=== PATIENT | male | born 1985 | race Caucasian/White ===

== ENCOUNTER 2020-09-10 08:26 | Emergency (ER) | payer MEDICAID ==
[~2020-09-10] VITALS: Ht 162.6 cm; Wt 72.7 kg
[2020-09-10] MEDS ORDERED: ACETAMINOPHEN 325 MG TABLET PO ONE (11:00)
[2020-09-10 11:15] LABS: BASOPHILS % (AUTO) 0.5 % (0.0-2.0); EOSINOPHILS % (AUTO) 2.1 % (1.0-6.0); HEMATOCRIT 37.9 % (41-53); HEMOGLOBIN 12.9 g/dL (13.5-17.5); LYMPHOCYTES # (AUTO) 1.6 K/uL (1.0-4.8); LYMPHOCYTES % (AUTO) 22.5 % (22.0-44.0); MEAN CORPUSCULAR HEMOGLOBIN 30.7 pg (26.0-34.0); MEAN CORPUSCULAR HGB CONC 34.1 G/dL (31.0-37.0); MEAN CORPUSCULAR VOLUME 90 fL (80-100); MONOCYTES # (AUTO) 0.4 K/uL (0.1-1.0); MONOCYTES % (AUTO) 6.1 % (2.0-9.0); NEUTROPHILS # (AUTO) 4.8 K/uL (1.8-7.7); NEUTROPHILS % (AUTO) 68.8 % (40.0-70.0); PLATELET COUNT (AUTO) 226 K/uL (150-450); RED BLOOD CELL COUNT(AUTO) 4.21 MIL/uL (4.50-5.90); RED CELL DISTRIBUTION WIDTH 13.3 % (11.5-14.5)
[2020-09-10 11:27] LABS: COVID AG,FIA SOURCE NASOPHARYNGEAL
[2020-09-10 11:37] LABS: ANION GAP 8 mmol/L (8-16); CALCIUM, TOTAL 8.7 mg/dL (8.8-10.5); CARBON DIOXIDE 30 mmol/L (22-29); CHLORIDE 103 mmol/L (98-107); CREATININE 0.84 mg/dL (0.60-1.30); GLOMERULAR FILTR. RATE CALC > 60 mL/min (>60); GLUCOSE,RANDOM 124 mg/dL (70-110); POTASSIUM 3.9 mmol/L (3.5-5.1); SODIUM SERUM 141 mmol/L (136-145); UREA NITROGEN, BLOOD 9 mg/dL (7-18)
[2020-09-10 11:38] LABS: AMPHET/METH SCREEN,URINE NEGATIVE (NEGATIVE); BARBITURATE SCREEN, URINE NEGATIVE (NEGATIVE); BENZODIAZEPINES SCREEN,URINE NEGATIVE (NEGATIVE); CANNABINOID SCREEN,URINE NEGATIVE (NEGATIVE); COCAINE SCREEN,URINE NEGATIVE (NEGATIVE); METHADONE SCREEN, URINE NEGATIVE (NEGATIVE); OPIATE SCREEN,URINE NEGATIVE (NEGATIVE); PHENCYCLIDINE SCREEN,URINE NEGATIVE (NEGATIVE)
[2020-09-10 11:43] LABS: ALANINE AMINOTRANSFERASE 44 U/L (12-78); ALBUMIN 3.7 g/dL (3.4-5.0); ALKALINE PHOSPHATASE 103 U/L (46-116); ASPARTATE AMINOTRANSFERASE 21 U/L (15-37); BILIRUBIN,TOTAL 0.2 mg/dL (0.1-1.0); TOTAL PROTEIN, SERUM 7.1 g/dL (6.4-8.2)
[2020-09-10 12:00] VITALS: BP 136/39
== END 2020-09-10 12:23 | disposition home or self-care (01) ==
LOC: EMS 08:26
DX: R44.0 Auditory hallucinations (principal); Z20.822 Contact with and (suspected) exposure to COVID-19; F15.90 Other stimulant use, unspecified, uncomplicated; K08.89 Other specified disorders of teeth and supporting structures
CPT/HCPCS: 36415; 80053; 80307; 85025; 87426; 99284; G0480

== ENCOUNTER 2021-04-06 13:07 | Emergency (ER) | payer MEDICAID ==
[~2021-04-06] VITALS: Ht 170.2 cm; Wt 86.4 kg
[2021-04-06] MEDS ORDERED: LORazepam 1 MG TABLET PO ONE (13:45)
[2021-04-06] MEDS ORDERED: HALOPERIDOL 5 MG TABLET PO ONE (13:45)
[2021-04-06 14:10] LABS: BASOPHILS % (AUTO) 0.4 % (0.0-2.0); EOSINOPHILS % (AUTO) 1.3 % (1.0-6.0); HEMATOCRIT 40.1 % (41-53); HEMOGLOBIN 13.5 g/dL (13.5-17.5); LYMPHOCYTES # (AUTO) 1.5 K/uL (1.0-4.8); MEAN CORPUSCULAR HEMOGLOBIN 29.7 pg (26.0-34.0); MEAN CORPUSCULAR HGB CONC 33.5 G/dL (31.0-37.0); MEAN CORPUSCULAR VOLUME 89 fL (80-100); MONOCYTES # (AUTO) 0.7 K/uL (0.1-1.0); MONOCYTES % (AUTO) 8.2 % (2.0-9.0); NEUTROPHILS # (AUTO) 5.8 K/uL (1.8-7.7); NEUTROPHILS % (AUTO) 72.1 % (40.0-70.0); PLATELET COUNT (AUTO) 140 K/uL (150-450); RED BLOOD CELL COUNT(AUTO) 4.53 MIL/uL (4.50-5.90); RED CELL DISTRIBUTION WIDTH 12.8 % (11.5-14.5)
[2021-04-06 14:19] LABS: ANION GAP 9 mmol/L (8-16); CALCIUM, TOTAL 8.8 mg/dL (8.8-10.5); CARBON DIOXIDE 28 mmol/L (22-29); CHLORIDE 105 mmol/L (98-107); CREATININE 0.69 mg/dL (0.60-1.30); GLOMERULAR FILTR. RATE CALC > 60 mL/min (>60); GLUCOSE,RANDOM 120 mg/dL (70-110); POTASSIUM 3.9 mmol/L (3.5-5.1); SODIUM SERUM 142 mmol/L (136-145); UREA NITROGEN, BLOOD 11 mg/dL (7-18)
[2021-04-06 14:23] LABS: ALANINE AMINOTRANSFERASE 44 U/L (12-78); ALBUMIN 3.9 g/dL (3.4-5.0); ALKALINE PHOSPHATASE 123 U/L (46-116); ASPARTATE AMINOTRANSFERASE 16 U/L (15-37); BILIRUBIN,TOTAL 0.2 mg/dL (0.1-1.0); TOTAL PROTEIN, SERUM 7.8 g/dL (6.4-8.2)
[2021-04-06 15:12] LABS: AMPHET/METH SCREEN,URINE NEGATIVE (NEGATIVE); BARBITURATE SCREEN, URINE NEGATIVE (NEGATIVE); BENZODIAZEPINES SCREEN,URINE NEGATIVE (NEGATIVE); CANNABINOID SCREEN,URINE NEGATIVE (NEGATIVE); COCAINE SCREEN,URINE NEGATIVE (NEGATIVE); METHADONE SCREEN, URINE NEGATIVE (NEGATIVE); OPIATE SCREEN,URINE NEGATIVE (NEGATIVE)
[2021-04-06 15:13] LABS: PHENCYCLIDINE SCREEN,URINE NEGATIVE (NEGATIVE)
[2021-04-06] MEDS ORDERED: MECLIZINE HCL 25 MG TABLET PO ONE (17:15)
[2021-04-06 18:37] LABS: COVID AG,FIA SOURCE NASOPHARYNGEAL
[2021-04-06 19:30] VITALS: BP 129/79
== END 2021-04-06 19:42 | disposition short-term general hospital (02) ==
LOC: EMS 13:09
DX: F20.9 Schizophrenia, unspecified (principal); R42 Dizziness and giddiness; F19.90 Other psychoactive substance use, unspecified, uncomplicated; Z20.822 Contact with and (suspected) exposure to COVID-19
CPT/HCPCS: 36415; 70450; 80053; 80307; 85025; 87426; 99285; G0480

== ENCOUNTER 2021-04-07 10:14 | Inpatient (IN) | payer MEDICAID ==
[~2021-04-07] VITALS: Ht 160 cm; Wt 82.4 kg
[2021-04-07 10:51] LABS: BASOPHILS % (AUTO) 0.5 % (0.0-2.0); EOSINOPHILS % (AUTO) 1.3 % (1.0-6.0); HEMATOCRIT 40.8 % (41-53); HEMOGLOBIN 13.9 g/dL (13.5-17.5); LYMPHOCYTES # (AUTO) 1.3 K/uL (1.0-4.8); MEAN CORPUSCULAR HEMOGLOBIN 30.2 pg (26.0-34.0); MEAN CORPUSCULAR VOLUME 89 fL (80-100); MONOCYTES # (AUTO) 0.6 K/uL (0.1-1.0); MONOCYTES % (AUTO) 7.9 % (2.0-9.0); NEUTROPHILS % (AUTO) 71.3 % (40.0-70.0); PLATELET COUNT (AUTO) 229 K/uL (150-450); RED CELL DISTRIBUTION WIDTH 13.1 % (11.5-14.5)
[2021-04-07 11:00] LABS: ANION GAP 8 mmol/L (8-16); CALCIUM, TOTAL 9.1 mg/dL (8.8-10.5); CARBON DIOXIDE 30 mmol/L (22-29); CHLORIDE 105 mmol/L (98-107); CREATININE 0.78 mg/dL (0.60-1.30); GLOMERULAR FILTR. RATE CALC > 60 mL/min (>60); GLUCOSE,RANDOM 109 mg/dL (70-110); POTASSIUM 4.1 mmol/L (3.5-5.1); SODIUM SERUM 143 mmol/L (136-145); UREA NITROGEN, BLOOD 14 mg/dL (7-18)
[2021-04-07 11:05] LABS: ALANINE AMINOTRANSFERASE 43 U/L (12-78); ALBUMIN 4.1 g/dL (3.4-5.0); ALKALINE PHOSPHATASE 117 U/L (46-116); ASPARTATE AMINOTRANSFERASE 19 U/L (15-37); BILIRUBIN,TOTAL 0.3 mg/dL (0.1-1.0)
[2021-04-07] MEDS ORDERED: ACETAMINOPHEN 325 MG TABLET PO ONE (12:30)
[2021-04-07 12:53] LABS: COVID AG,FIA SOURCE NASOPHARYNGEAL
[2021-04-07] MEDS ORDERED: ZOLPIDEM TARTRATE 10 MG TABLET PO PRN (13:15)
[2021-04-07] MEDS: LORazepam 2 MG TABLET PO PRN (15:22)
[2021-04-07] MEDS: HALOPERIDOL 5 MG TABLET PO PRN (15:22)
[2021-04-07 17:30] VITALS: BP 137/90
[2021-04-07 18:36] LABS: APPEARANCE,URINE CLEAR (CLEAR); BILIRUBIN,URINE NEGATIVE (NEGATIVE); GLUCOSE, URINE (UA) NEGATIVE (NEGATIVE); KETONES,URINE NEGATIVE (NEGATIVE); LEUKOCYTE ESTERASE ,URINE NEGATIVE (NEGATIVE); NITRATE,URINE NEGATIVE (NEGATIVE); OCCULT BLOOD,URINE NEGATIVE (NEGATIVE); PROTEIN,URINE NEGATIVE (NEGATIVE); UROBILINOGEN,URINE 0.2 mg/dL (<=1.0)
[2021-04-07 19:00] LABS: AMPHET/METH SCREEN,URINE NEGATIVE (NEGATIVE); BARBITURATE SCREEN, URINE NEGATIVE (NEGATIVE); BENZODIAZEPINES SCREEN,URINE NEGATIVE (NEGATIVE); CANNABINOID SCREEN,URINE NEGATIVE (NEGATIVE); COCAINE SCREEN,URINE NEGATIVE (NEGATIVE); METHADONE SCREEN, URINE NEGATIVE (NEGATIVE); OPIATE SCREEN,URINE NEGATIVE (NEGATIVE)
[2021-04-07 19:02] LABS: PHENCYCLIDINE SCREEN,URINE NEGATIVE (NEGATIVE)
[2021-04-08 08:59] VITALS: BP 108/70
[2021-04-08] MEDS: LORazepam 2 MG TABLET PO PRN ×2 (09:08→20:23)
[2021-04-08] MEDS: HALOPERIDOL 5 MG TABLET PO PRN (09:08)
[2021-04-08 11:38] LABS: CHOL/HDL RATIO 3.9 (4.2-7.3); FREE T4 (FREE THYROXINE) 0.98 ng/dL (0.76-1.46); THYROID STIMULATING HORMONE 1.41 uIU/mL (0.36-3.74)
[2021-04-08 16:00] VITALS: BP 120/75
[2021-04-08] MEDS: QUEtiapine FUMARATE 100 MG TABLET PO SCH (20:24)
[2021-04-09 08:55] VITALS: BP 142/90
[2021-04-09] MEDS: LORazepam 2 MG TABLET PO PRN ×3 (10:00→19:40)
[2021-04-09 15:00] VITALS: BP 142/92
[2021-04-09 17:16] VITALS: BP 140/90
[2021-04-09 19:40] VITALS: BP 132/76
[2021-04-09] MEDS: QUEtiapine FUMARATE 100 MG TABLET PO SCH (20:15)
[2021-04-10 08:20] VITALS: BP 111/70
[2021-04-10] MEDS: LORazepam 2 MG TABLET PO PRN ×2 (10:16→16:09)
[2021-04-10 16:09] VITALS: BP 123/79
[2021-04-10] MEDS ORDERED: ACETAMINOPHEN 325 MG TABLET PO PRN (16:30)
[2021-04-10 17:07] VITALS: BP 124/79
[2021-04-10] MEDS: QUEtiapine FUMARATE 100 MG TABLET PO SCH (20:13)
[2021-04-11 02:41] VITALS: BP 116/71
[2021-04-11 08:39] VITALS: BP 123/77
[2021-04-11] MEDS: LORazepam 2 MG TABLET PO PRN (09:06)
[2021-04-11] MEDS ORDERED: QUET100T34 PO (11:06)
== END 2021-04-11 16:10 | disposition home or self-care (01) | DRG 750 ==
LOC: EMS 10:16 → 3EI 13:14
DX: F20.0 Paranoid schizophrenia (principal); R45.851 Suicidal ideations; E66.9 Obesity, unspecified; Z20.822 Contact with and (suspected) exposure to COVID-19; E78.5 Hyperlipidemia, unspecified; F15.90 Other stimulant use, unspecified, uncomplicated; Z68.35 Body mass index [BMI] 35.0-35.9, adult; Z79.899 Other long term (current) drug therapy; Z87.891 Personal history of nicotine dependence; Z91.51 Personal history of suicidal behavior
CPT/HCPCS: 80053; 80061; 80307; 81003; 84439; 84443; 85025; 99285; G0480

== ENCOUNTER 2021-05-20 09:18 | Emergency (ER) | payer MEDICAID ==
[~2021-05-20] VITALS: Ht 160 cm; Wt 77.3 kg
[~2021-05-20 09:18] MED LIST: ARIP15TA27 PO
[2021-05-20] MEDS ORDERED: ACETAMINOPHEN 500 MG TABLET PO ONE (09:45)
[2021-05-20] MEDS ORDERED: LORazepam 1 MG TABLET PO ONE (09:45)
[2021-05-20] MEDS ORDERED: HALOPERIDOL 5 MG TABLET PO ONE (09:45)
[2021-05-20 11:40] VITALS: BP 109/71
== END 2021-05-20 12:21 | disposition home or self-care (01) ==
LOC: EMS 09:18
DX: F20.0 Paranoid schizophrenia (principal); R51.9 Headache, unspecified; F17.210 Nicotine dependence, cigarettes, uncomplicated; Z79.899 Other long term (current) drug therapy
CPT/HCPCS: 99284; Z7502; Z7610

== ENCOUNTER 2021-05-20 12:35 | Emergency (ER) | payer MEDICAID ==
[~2021-05-20] VITALS: Ht 167.6 cm; Wt 85.0 kg
[2021-05-20 12:40] VITALS: BP 106/73
[2021-05-20 14:28] LABS: BASOPHILS % (AUTO) 0.2 % (0.0-2.0); EOSINOPHILS % (AUTO) 1.7 % (1.0-6.0); HEMATOCRIT 39.3 % (41-53); HEMOGLOBIN 13.3 g/dL (13.5-17.5); LYMPHOCYTES # (AUTO) 1.6 K/uL (1.0-4.8); LYMPHOCYTES % (AUTO) 18.2 % (22.0-44.0); MEAN CORPUSCULAR HEMOGLOBIN 30.1 pg (26.0-34.0); MEAN CORPUSCULAR HGB CONC 33.9 G/dL (31.0-37.0); MEAN CORPUSCULAR VOLUME 89 fL (80-100); MONOCYTES # (AUTO) 0.5 K/uL (0.1-1.0); MONOCYTES % (AUTO) 5.1 % (2.0-9.0); NEUTROPHILS # (AUTO) 6.7 K/uL (1.8-7.7); NEUTROPHILS % (AUTO) 74.8 % (40.0-70.0); PLATELET COUNT (AUTO) 233 K/uL (150-450); RED BLOOD CELL COUNT(AUTO) 4.42 MIL/uL (4.50-5.90)
[2021-05-20 14:38] LABS: ANION GAP 8 mmol/L (8-16); CALCIUM, TOTAL 8.8 mg/dL (8.8-10.5); CARBON DIOXIDE 29 mmol/L (22-29); CHLORIDE 105 mmol/L (98-107); CREATININE 0.93 mg/dL (0.60-1.30); GLOMERULAR FILTR. RATE CALC > 60 mL/min (>60); GLUCOSE,RANDOM 156 mg/dL (70-110); POTASSIUM 3.3 mmol/L (3.5-5.1); SODIUM SERUM 142 mmol/L (136-145); UREA NITROGEN, BLOOD 14 mg/dL (7-18)
[2021-05-20 14:44] LABS: ALANINE AMINOTRANSFERASE 32 U/L (12-78); ALBUMIN 3.5 g/dL (3.4-5.0); ALKALINE PHOSPHATASE 92 U/L (46-116); ASPARTATE AMINOTRANSFERASE 16 U/L (15-37); BILIRUBIN,TOTAL 0.2 mg/dL (0.1-1.0); TOTAL PROTEIN, SERUM 7.1 g/dL (6.4-8.2)
== END 2021-05-20 15:01 | disposition home or self-care (01) ==
LOC: EMS 12:35
DX: F20.0 Paranoid schizophrenia (principal); F15.10 Other stimulant abuse, uncomplicated; F17.210 Nicotine dependence, cigarettes, uncomplicated
CPT/HCPCS: 36415; 80053; 85025; 99283; G0480

== ENCOUNTER 2021-05-22 11:08 | Emergency (ER) | payer MEDICAID ==
[~2021-05-22] VITALS: Ht 160 cm; Wt 84.1 kg
[2021-05-22 11:39] LABS: BASOPHILS % (AUTO) 0.5 % (0.0-2.0); EOSINOPHILS % (AUTO) 1.6 % (1.0-6.0); HEMATOCRIT 37.6 % (41-53); LYMPHOCYTES # (AUTO) 1.5 K/uL (1.0-4.8); LYMPHOCYTES % (AUTO) 18.7 % (22.0-44.0); MEAN CORPUSCULAR HEMOGLOBIN 30.5 pg (26.0-34.0); MEAN CORPUSCULAR HGB CONC 34.4 G/dL (31.0-37.0); MEAN CORPUSCULAR VOLUME 89 fL (80-100); MONOCYTES # (AUTO) 0.4 K/uL (0.1-1.0); MONOCYTES % (AUTO) 5.2 % (2.0-9.0); NEUTROPHILS # (AUTO) 5.8 K/uL (1.8-7.7); PLATELET COUNT (AUTO) 233 K/uL (150-450); RED BLOOD CELL COUNT(AUTO) 4.25 MIL/uL (4.50-5.90); RED CELL DISTRIBUTION WIDTH 12.9 % (11.5-14.5)
[2021-05-22 11:50] LABS: ANION GAP 4 mmol/L (8-16); CALCIUM, TOTAL 8.4 mg/dL (8.8-10.5); CARBON DIOXIDE 30 mmol/L (22-29); CHLORIDE 108 mmol/L (98-107); CREATININE 1.04 mg/dL (0.60-1.30); GLOMERULAR FILTR. RATE CALC > 60 mL/min (>60); GLUCOSE,RANDOM 133 mg/dL (70-110); POTASSIUM 4.1 mmol/L (3.5-5.1); SODIUM SERUM 142 mmol/L (136-145); UREA NITROGEN, BLOOD 14 mg/dL (7-18)
[2021-05-22 11:55] LABS: ALANINE AMINOTRANSFERASE 34 U/L (12-78); ALBUMIN 3.7 g/dL (3.4-5.0); ALKALINE PHOSPHATASE 99 U/L (46-116); ASPARTATE AMINOTRANSFERASE 15 U/L (15-37); BILIRUBIN,TOTAL 0.2 mg/dL (0.1-1.0); CREATINE KINASE, TOTAL ONLY 73 U/L (39-308); LIPASE 62 U/L (73-393); TOTAL PROTEIN, SERUM 7.2 g/dL (6.4-8.2)
[2021-05-22 12:02] LABS: B-TYPE NATRIURETIC PEPTIDE 48 pg/mL (0-100)
[2021-05-22] MEDS ORDERED: PB/HYOSCY/ATR/SCOP/LIDO/MAALOX 55 ML BOTTLE PO ONE (12:30)
[2021-05-22] MEDS ORDERED: FAMOTIDINE 20 MG TABLET PO ONE (12:30)
[2021-05-22 13:35] VITALS: BP 118/61
== END 2021-05-22 15:02 | disposition home or self-care (01) ==
LOC: EMS 11:08
DX: K59.00 Constipation, unspecified (principal); K62.5 Hemorrhage of anus and rectum; F20.9 Schizophrenia, unspecified; F19.90 Other psychoactive substance use, unspecified, uncomplicated; F17.210 Nicotine dependence, cigarettes, uncomplicated
CPT/HCPCS: 74018; 80053; 82271; 82550; 83690; 83735; 83880; 85025; 93005; 99285

== ENCOUNTER 2021-05-25 08:34 | Emergency (ER) | payer MEDICAID ==
[~2021-05-25] VITALS: Ht 160 cm; Wt 85.0 kg
[2021-05-25] MEDS ORDERED: QUEtiapine FUMARATE 100 MG TABLET PO ONE (10:15)
[2021-05-25 11:25] LABS: COVID AG,FIA SOURCE NASOPHARYNGEAL
[2021-05-25 11:46] LABS: BASOPHILS % (AUTO) 0.3 % (0.0-2.0); EOSINOPHILS % (AUTO) 1.5 % (1.0-6.0); HEMATOCRIT 39.3 % (41-53); HEMOGLOBIN 13.6 g/dL (13.5-17.5); LYMPHOCYTES # (AUTO) 1.6 K/uL (1.0-4.8); LYMPHOCYTES % (AUTO) 17.9 % (22.0-44.0); MEAN CORPUSCULAR HGB CONC 34.6 G/dL (31.0-37.0); MEAN CORPUSCULAR VOLUME 87 fL (80-100); MONOCYTES # (AUTO) 0.7 K/uL (0.1-1.0); MONOCYTES % (AUTO) 7.5 % (2.0-9.0); NEUTROPHILS # (AUTO) 6.5 K/uL (1.8-7.7); NEUTROPHILS % (AUTO) 72.8 % (40.0-70.0); RED BLOOD CELL COUNT(AUTO) 4.52 MIL/uL (4.50-5.90); RED CELL DISTRIBUTION WIDTH 12.9 % (11.5-14.5)
[2021-05-25 11:48] LABS: ANION GAP 5 mmol/L (8-16); CALCIUM, TOTAL 8.9 mg/dL (8.8-10.5); CARBON DIOXIDE 31 mmol/L (22-29); CHLORIDE 103 mmol/L (98-107); CREATININE 0.66 mg/dL (0.60-1.30); GLOMERULAR FILTR. RATE CALC > 60 mL/min (>60); GLUCOSE,RANDOM 104 mg/dL (70-110); POTASSIUM 3.9 mmol/L (3.5-5.1); SODIUM SERUM 139 mmol/L (136-145); UREA NITROGEN, BLOOD 9 mg/dL (7-18)
[2021-05-25 11:50] LABS: ALANINE AMINOTRANSFERASE 42 U/L (12-78); ALBUMIN 3.9 g/dL (3.4-5.0); ALKALINE PHOSPHATASE 96 U/L (46-116); ASPARTATE AMINOTRANSFERASE 24 U/L (15-37); BILIRUBIN,TOTAL 0.2 mg/dL (0.1-1.0); TOTAL PROTEIN, SERUM 7.7 g/dL (6.4-8.2)
[2021-05-25 11:52] LABS: ACETAMINOPHEN < 2 mcg/mL (10-30)
[2021-05-25 12:06] LABS: PLATELET COUNT (AUTO) 230 K/uL (150-450)
[2021-05-25 12:11] LABS: SALICYLATE 0.7 mg/dL (2.8-20.0)
[2021-05-25 13:43] VITALS: BP 119/75
== END 2021-05-25 13:48 | disposition home or self-care (01) ==
LOC: EMS 08:47
DX: F20.9 Schizophrenia, unspecified (principal); F17.210 Nicotine dependence, cigarettes, uncomplicated; Z20.822 Contact with and (suspected) exposure to COVID-19
CPT/HCPCS: 36415; 80053; 85025; 87426; 99285; G0480; G0481

== ENCOUNTER 2021-05-30 09:39 | Emergency (ER) | payer SELFPAY ==
[~2021-05-30] VITALS: Ht 160 cm; Wt 80.5 kg
[2021-05-30 10:05] LABS: BASOPHILS % (AUTO) 0.4 % (0.0-2.0); EOSINOPHILS % (AUTO) 1.9 % (1.0-6.0); HEMATOCRIT 37.7 % (41-53); HEMOGLOBIN 12.8 g/dL (13.5-17.5); LYMPHOCYTES # (AUTO) 1.9 K/uL (1.0-4.8); LYMPHOCYTES % (AUTO) 25.1 % (22.0-44.0); MEAN CORPUSCULAR HGB CONC 33.9 G/dL (31.0-37.0); MEAN CORPUSCULAR VOLUME 89 fL (80-100); MONOCYTES # (AUTO) 0.6 K/uL (0.1-1.0); MONOCYTES % (AUTO) 7.5 % (2.0-9.0); NEUTROPHILS # (AUTO) 4.9 K/uL (1.8-7.7); NEUTROPHILS % (AUTO) 65.1 % (40.0-70.0); PLATELET COUNT (AUTO) 255 K/uL (150-450); RED BLOOD CELL COUNT(AUTO) 4.25 MIL/uL (4.50-5.90); RED CELL DISTRIBUTION WIDTH 12.8 % (11.5-14.5)
[2021-05-30 10:13] LABS: ANION GAP 7 mmol/L (8-16); CALCIUM, TOTAL 9.5 mg/dL (8.8-10.5); CARBON DIOXIDE 30 mmol/L (22-29); CHLORIDE 103 mmol/L (98-107); CREATININE 0.84 mg/dL (0.60-1.30); GLOMERULAR FILTR. RATE CALC > 60 mL/min (>60); GLUCOSE,RANDOM 105 mg/dL (70-110); POTASSIUM 3.5 mmol/L (3.5-5.1); SODIUM SERUM 140 mmol/L (136-145); UREA NITROGEN, BLOOD 11 mg/dL (7-18)
[2021-05-30 10:19] LABS: ALANINE AMINOTRANSFERASE 59 U/L (12-78); ALBUMIN 3.9 g/dL (3.4-5.0); ALKALINE PHOSPHATASE 100 U/L (46-116); ASPARTATE AMINOTRANSFERASE 38 U/L (15-37); BILIRUBIN,TOTAL 0.2 mg/dL (0.1-1.0); TOTAL PROTEIN, SERUM 7.6 g/dL (6.4-8.2)
[2021-05-30 10:42] VITALS: BP 135/76
== END 2021-05-30 11:12 | disposition home or self-care (01) ==
LOC: EMS 09:39
DX: F20.9 Schizophrenia, unspecified (principal); F17.210 Nicotine dependence, cigarettes, uncomplicated
CPT/HCPCS: 36415; 80053; 85025; 99284; G0480

== ENCOUNTER 2021-05-31 06:21 | Emergency (ER) | payer MEDICAID ==
[~2021-05-31] VITALS: Ht 160 cm; Wt 79.5 kg
[2021-05-31 06:57] LABS: GLUCOMETER DEV NAME(LOC) ERT.5; GLUCOSE,POINT OF CARE 100 MG/DL (70-110)
[2021-05-31 06:58] LABS: BASOPHILS % (AUTO) 0.5 % (0.0-2.0); EOSINOPHILS % (AUTO) 2.5 % (1.0-6.0); HEMATOCRIT 35.9 % (41-53); HEMOGLOBIN 12.4 g/dL (13.5-17.5); LYMPHOCYTES # (AUTO) 1.2 K/uL (1.0-4.8); LYMPHOCYTES % (AUTO) 19.5 % (22.0-44.0); MEAN CORPUSCULAR HEMOGLOBIN 30.1 pg (26.0-34.0); MEAN CORPUSCULAR HGB CONC 34.6 G/dL (31.0-37.0); MEAN CORPUSCULAR VOLUME 87 fL (80-100); MONOCYTES # (AUTO) 0.4 K/uL (0.1-1.0); MONOCYTES % (AUTO) 6.5 % (2.0-9.0); NEUTROPHILS # (AUTO) 4.3 K/uL (1.8-7.7); PLATELET COUNT (AUTO) 212 K/uL (150-450); RED BLOOD CELL COUNT(AUTO) 4.13 MIL/uL (4.50-5.90); RED CELL DISTRIBUTION WIDTH 12.9 % (11.5-14.5)
[2021-05-31 07:00] LABS: ANION GAP 6 mmol/L (8-16); CALCIUM, TOTAL 9.1 mg/dL (8.8-10.5); CARBON DIOXIDE 31 mmol/L (22-29); CHLORIDE 104 mmol/L (98-107); CREATININE 0.88 mg/dL (0.60-1.30); GLOMERULAR FILTR. RATE CALC > 60 mL/min (>60); GLUCOSE,RANDOM 104 mg/dL (70-110); POTASSIUM 3.7 mmol/L (3.5-5.1); SODIUM SERUM 141 mmol/L (136-145); UREA NITROGEN, BLOOD 10 mg/dL (7-18)
[2021-05-31 07:06] LABS: ALANINE AMINOTRANSFERASE 52 U/L (12-78); ALBUMIN 3.6 g/dL (3.4-5.0); ALKALINE PHOSPHATASE 94 U/L (46-116); ASPARTATE AMINOTRANSFERASE 27 U/L (15-37); BILIRUBIN,TOTAL 0.3 mg/dL (0.1-1.0); TOTAL PROTEIN, SERUM 7.1 g/dL (6.4-8.2)
[2021-05-31] MEDS ORDERED: QUEtiapine FUMARATE 100 MG TABLET PO ONE (11:15)
[2021-05-31 12:21] LABS: AMPHET/METH SCREEN,URINE POSITIVE (NEGATIVE); BARBITURATE SCREEN, URINE NEGATIVE (NEGATIVE); BENZODIAZEPINES SCREEN,URINE NEGATIVE (NEGATIVE); CANNABINOID SCREEN,URINE NEGATIVE (NEGATIVE); COCAINE SCREEN,URINE NEGATIVE (NEGATIVE); METHADONE SCREEN, URINE NEGATIVE (NEGATIVE); OPIATE SCREEN,URINE NEGATIVE (NEGATIVE)
[2021-05-31 12:22] LABS: PHENCYCLIDINE SCREEN,URINE NEGATIVE (NEGATIVE)
[2021-05-31 13:08] VITALS: BP 120/66
== END 2021-05-31 13:09 | disposition home or self-care (01) ==
LOC: EMS 06:22
DX: F20.9 Schizophrenia, unspecified (principal); F15.10 Other stimulant abuse, uncomplicated; G47.00 Insomnia, unspecified
CPT/HCPCS: 36415; 80053; 80307; 82962; 85025; 99283; G0480

== ENCOUNTER 2021-06-04 01:28 | Emergency (ER) | payer MEDICAID ==
[~2021-06-04] VITALS: Ht 165.1 cm; Wt 81.8 kg
[2021-06-04] MEDS ORDERED: LORazepam 2 MG TABLET PO ONE (01:45)
[2021-06-04 04:40] VITALS: BP 132/87
== END 2021-06-04 06:49 | disposition home or self-care (01) ==
LOC: EMS 01:32
DX: F15.10 Other stimulant abuse, uncomplicated (principal); F20.9 Schizophrenia, unspecified; Z79.899 Other long term (current) drug therapy
CPT/HCPCS: 36415; 99283; G0480

== ENCOUNTER 2021-06-11 13:40 | Emergency (ER) | payer MEDICAID ==
[~2021-06-11] VITALS: Ht 160 cm; Wt 85.0 kg
[2021-06-11] MEDS ORDERED: MECL-160 PO (14:12)
[2021-06-11] MEDS ORDERED: QUET100T PO (14:12)
[2021-06-11 15:03] LABS: BASOPHILS % (AUTO) 0.4 % (0.0-2.0); EOSINOPHILS % (AUTO) 2.4 % (1.0-6.0); HEMATOCRIT 39.3 % (41-53); HEMOGLOBIN 13.3 g/dL (13.5-17.5); LYMPHOCYTES # (AUTO) 2.4 K/uL (1.0-4.8); LYMPHOCYTES % (AUTO) 26.8 % (22.0-44.0); MEAN CORPUSCULAR HEMOGLOBIN 29.3 pg (26.0-34.0); MEAN CORPUSCULAR HGB CONC 33.8 G/dL (31.0-37.0); MEAN CORPUSCULAR VOLUME 87 fL (80-100); MONOCYTES # (AUTO) 0.7 K/uL (0.1-1.0); MONOCYTES % (AUTO) 7.5 % (2.0-9.0); NEUTROPHILS # (AUTO) 5.6 K/uL (1.8-7.7); NEUTROPHILS % (AUTO) 62.9 % (40.0-70.0); PLATELET COUNT (AUTO) 285 K/uL (150-450); RED BLOOD CELL COUNT(AUTO) 4.53 MIL/uL (4.50-5.90); RED CELL DISTRIBUTION WIDTH 12.7 % (11.5-14.5)
[2021-06-11 15:17] LABS: ANION GAP 3 mmol/L (8-16); CALCIUM, TOTAL 9.2 mg/dL (8.8-10.5); CARBON DIOXIDE 31 mmol/L (22-29); CHLORIDE 103 mmol/L (98-107); CREATININE 0.79 mg/dL (0.60-1.30); GLOMERULAR FILTR. RATE CALC > 60 mL/min (>60); GLUCOSE,RANDOM 92 mg/dL (70-110); POTASSIUM 4.2 mmol/L (3.5-5.1); SODIUM SERUM 137 mmol/L (136-145); UREA NITROGEN, BLOOD 14 mg/dL (7-18)
[2021-06-11 15:23] LABS: ALANINE AMINOTRANSFERASE 37 U/L (12-78); ALBUMIN 3.7 g/dL (3.4-5.0); ALKALINE PHOSPHATASE 96 U/L (46-116); ASPARTATE AMINOTRANSFERASE 14 U/L (15-37); BILIRUBIN,TOTAL 0.2 mg/dL (0.1-1.0); TOTAL PROTEIN, SERUM 7.5 g/dL (6.4-8.2)
[2021-06-11] MEDS ORDERED: HALOPERIDOL 5 MG TABLET PO ONE (15:30)
[2021-06-11 15:55] VITALS: BP 120/53
[2021-06-11 15:58] LABS: COVID AG,FIA SOURCE NASAL SWAB
== END 2021-06-11 16:20 | disposition home or self-care (01) ==
LOC: EMS 13:44
DX: F25.9 Schizoaffective disorder, unspecified (principal); F15.90 Other stimulant use, unspecified, uncomplicated; Z59.00 Homelessness unspecified; Z79.899 Other long term (current) drug therapy; Z20.822 Contact with and (suspected) exposure to COVID-19
CPT/HCPCS: 36415; 80053; 85025; 87426; 99284; G0480

== ENCOUNTER 2021-08-21 22:34 | Emergency (ER) | payer MEDICAID ==
[~2021-08-21] VITALS: Ht 160 cm; Wt 85.0 kg
[~2021-08-21 22:34] MED LIST changes: +MECL-160 PO; +QUET100T PO
[2021-08-21] MEDS ORDERED: QUET200T PO (22:46)
[2021-08-21] MEDS ORDERED: DiphenhydrAMINE HCL 50 MG/ML VIAL IVP ONE (23:00)
[2021-08-21] MEDS ORDERED: KETOROLAC TROMETHAMINE 30 MG/ML VIAL IVP ONE (23:00)
[2021-08-21] MEDS ORDERED: SODIUM CHLORIDE 0.9% 1,000 ML IV ONE (23:00)
[2021-08-21] MEDS ORDERED: METOCLOPRAMIDE HCL 5 MG/ML 2 ML VIAL IVP ONE (23:00)
[2021-08-21 23:24] LABS: BASOPHILS % (AUTO) 0.4 % (0.0-2.0); EOSINOPHILS % (AUTO) 0.9 % (1.0-6.0); HEMATOCRIT 38.2 % (41-53); HEMOGLOBIN 13.2 g/dL (13.5-17.5); LYMPHOCYTES % (AUTO) 19.2 % (22.0-44.0); MEAN CORPUSCULAR HEMOGLOBIN 29.8 pg (26.0-34.0); MEAN CORPUSCULAR HGB CONC 34.5 G/dL (31.0-37.0); MEAN CORPUSCULAR VOLUME 87 fL (80-100); MONOCYTES # (AUTO) 0.7 K/uL (0.1-1.0); MONOCYTES % (AUTO) 6.8 % (2.0-9.0); NEUTROPHILS # (AUTO) 7.5 K/uL (1.8-7.7); NEUTROPHILS % (AUTO) 72.7 % (40.0-70.0); PLATELET COUNT (AUTO) 219 K/uL (150-450); RED BLOOD CELL COUNT(AUTO) 4.42 MIL/uL (4.50-5.90); RED CELL DISTRIBUTION WIDTH 13.7 % (11.5-14.5)
[2021-08-21 23:32] LABS: ANION GAP 9 mmol/L (8-16); CALCIUM, TOTAL 8.9 mg/dL (8.8-10.5); CARBON DIOXIDE 30 mmol/L (22-29); CHLORIDE 100 mmol/L (98-107); CREATININE 0.75 mg/dL (0.60-1.30); GLOMERULAR FILTR. RATE CALC > 60 mL/min (>60); GLUCOSE,RANDOM 124 mg/dL (70-110); POTASSIUM 3.5 mmol/L (3.5-5.1); SODIUM SERUM 139 mmol/L (136-145); UREA NITROGEN, BLOOD 9 mg/dL (7-18)
[2021-08-21] MEDS ORDERED: IOHEXOL 350 MG/ML 100 ML VIAL ONE (23:38)
[2021-08-22 04:05] VITALS: BP 123/64
== END 2021-08-22 04:13 | disposition home or self-care (01) ==
LOC: EMS 22:35
DX: R51.9 Headache, unspecified (principal); F20.9 Schizophrenia, unspecified; F15.90 Other stimulant use, unspecified, uncomplicated; Z79.899 Other long term (current) drug therapy
CPT/HCPCS: 36415; 70496; 80048; 85025; 96361; 96374; 96375; 99285; J1200; J1885; J2765; J7030; Q9967

== ENCOUNTER 2021-08-22 05:19 | Inpatient (IN) | payer MEDICAID ==
[~2021-08-22] VITALS: Ht 167.6 cm; Wt 87.5 kg
[~2021-08-22 05:19] MED LIST changes: -QUET100T PO; +QUET200T PO
[2021-08-22 06:31] LABS: BASOPHILS % (AUTO) 0.6 % (0.0-2.0); EOSINOPHILS % (AUTO) 1.6 % (1.0-6.0); HEMATOCRIT 37.3 % (41-53); HEMOGLOBIN 12.8 g/dL (13.5-17.5); LYMPHOCYTES # (AUTO) 2.1 K/uL (1.0-4.8); LYMPHOCYTES % (AUTO) 21.7 % (22.0-44.0); MEAN CORPUSCULAR HEMOGLOBIN 29.8 pg (26.0-34.0); MEAN CORPUSCULAR HGB CONC 34.3 G/dL (31.0-37.0); MEAN CORPUSCULAR VOLUME 87 fL (80-100); MONOCYTES # (AUTO) 0.8 K/uL (0.1-1.0); MONOCYTES % (AUTO) 7.6 % (2.0-9.0); NEUTROPHILS # (AUTO) 6.8 K/uL (1.8-7.7); NEUTROPHILS % (AUTO) 68.5 % (40.0-70.0); PLATELET COUNT (AUTO) 221 K/uL (150-450); RED BLOOD CELL COUNT(AUTO) 4.28 MIL/uL (4.50-5.90); RED CELL DISTRIBUTION WIDTH 13.6 % (11.5-14.5)
[2021-08-22 06:42] LABS: ANION GAP 7 mmol/L (8-16); CALCIUM, TOTAL 8.8 mg/dL (8.8-10.5); CARBON DIOXIDE 28 mmol/L (22-29); CHLORIDE 104 mmol/L (98-107); CREATININE 0.83 mg/dL (0.60-1.30); GLOMERULAR FILTR. RATE CALC > 60 mL/min (>60); GLUCOSE,RANDOM 104 mg/dL (70-110); POTASSIUM 3.8 mmol/L (3.5-5.1); SODIUM SERUM 139 mmol/L (136-145); UREA NITROGEN, BLOOD 9 mg/dL (7-18)
[2021-08-22 06:48] LABS: ALANINE AMINOTRANSFERASE 59 U/L (12-78); ALBUMIN 3.6 g/dL (3.4-5.0); ALKALINE PHOSPHATASE 97 U/L (46-116); ASPARTATE AMINOTRANSFERASE 22 U/L (15-37); BILIRUBIN,TOTAL 0.3 mg/dL (0.1-1.0); TOTAL PROTEIN, SERUM 7.3 g/dL (6.4-8.2)
[2021-08-22] MEDS ORDERED: ZOLPIDEM TARTRATE 10 MG TABLET PO PRN (07:45)
[2021-08-22] MEDS: LORazepam 1 MG TABLET PO ONE ×2 (07:52→07:58)
[2021-08-22] MEDS: DiphenhydrAMINE HCL 25 MG CAPSULE PO ONE ×2 (07:52→07:58)
[2021-08-22] MEDS: HALOPERIDOL 5 MG TABLET PO ONE ×2 (07:52→07:58)
[2021-08-22 08:05] LABS: COVID AG,FIA SOURCE NASAL SWAB
[2021-08-22 16:08] VITALS: BP 101/66
[2021-08-22] MEDS ORDERED: INFLUENZA VIRUS VACCINE QVS 2021-22 (6MO+)/PF 60 MCG/0.5 ML SYRINGE IM. ONE (22:45)
[2021-08-22] MEDS ORDERED: PNEUMOCOCCAL VACCINE POLYVALENT 0.5 ML VIAL [PPSV23] IM. ONE (22:45)
[2021-08-23 08:12] VITALS: BP 120/63
[2021-08-23 08:21] LABS: CHOL/HDL RATIO 4.8 (4.2-7.3)
[2021-08-23] MEDS: LORazepam 2 MG TABLET PO PRN (10:19)
[2021-08-23] MEDS: QUEtiapine FUMARATE 25 MG TABLET PO SCH (14:14)
[2021-08-23] MEDS ORDERED: LOPERAMIDE HCL 2 MG CAPSULE PO PRN (15:00)
[2021-08-23] MEDS ORDERED: GuaiFENesin/D-METHORPHAN [SUGAR-FREE] 200-20MG/10 ML SYRUP UDCUP PO PRN (15:00)
[2021-08-23] MEDS ORDERED: DOCUSATE SODIUM 100 MG CAPSULE PO PRN (15:00)
[2021-08-23] MEDS ORDERED: CloNIDine HCL 0.1 MG TABLET PO PRN (15:00)
[2021-08-23] MEDS ORDERED: ALBUTEROL SULFATE HFA 90 MCG/PUFF 8 GM INHALER IH PRN (15:00)
[2021-08-23] MEDS ORDERED: PETROLATUM,WHITE 28 GM JELLY TP PRN (15:00)
[2021-08-23] MEDS ORDERED: NICOTINE 14 MG/24 HOUR PATCH TD PRN (15:00)
[2021-08-23] MEDS ORDERED: ONDANSETRON HCL 4 MG TABLET PO PRN (15:00)
[2021-08-23] MEDS ORDERED: MAG HYDROX/AL HYDROX/SIMETH ES 30 ML SUSPENSION UDCUP PO PRN (15:00)
[2021-08-23 16:12] VITALS: BP 106/60
[2021-08-23] MEDS: QUEtiapine FUMARATE 300 MG TABLET PO SCH (20:26)
[2021-08-24 01:10] VITALS: BP 101/65
[2021-08-24 07:34] LABS: BASOPHILS % (AUTO) 0.5 % (0.0-2.0); EOSINOPHILS % (AUTO) 4.1 % (1.0-6.0); HEMATOCRIT 38.6 % (41-53); HEMOGLOBIN 13.2 g/dL (13.5-17.5); LYMPHOCYTES # (AUTO) 2.3 K/uL (1.0-4.8); LYMPHOCYTES % (AUTO) 27.4 % (22.0-44.0); MEAN CORPUSCULAR HEMOGLOBIN 29.9 pg (26.0-34.0); MEAN CORPUSCULAR HGB CONC 34.2 G/dL (31.0-37.0); MEAN CORPUSCULAR VOLUME 88 fL (80-100); MONOCYTES # (AUTO) 0.7 K/uL (0.1-1.0); MONOCYTES % (AUTO) 8.8 % (2.0-9.0); NEUTROPHILS # (AUTO) 4.9 K/uL (1.8-7.7); NEUTROPHILS % (AUTO) 59.2 % (40.0-70.0); RED BLOOD CELL COUNT(AUTO) 4.41 MIL/uL (4.50-5.90); RED CELL DISTRIBUTION WIDTH 13.7 % (11.5-14.5)
[2021-08-24 07:45] LABS: PLATELET COUNT (AUTO) 188 K/uL (150-450)
[2021-08-24 07:48] LABS: APPEARANCE,URINE CLEAR (CLEAR); BILIRUBIN,URINE NEGATIVE (NEGATIVE); GLUCOSE, URINE (UA) NEGATIVE (NEGATIVE); KETONES,URINE NEGATIVE (NEGATIVE); LEUKOCYTE ESTERASE ,URINE NEGATIVE Leu/uL (NEGATIVE); NITRATE,URINE NEGATIVE (NEGATIVE); OCCULT BLOOD,URINE NEGATIVE (NEGATIVE); PH,URINE 6.5 (5.0-8.0); PROTEIN,URINE NEGATIVE (NEGATIVE); SPECIFIC GRAVITIY, URINE 1.018 (1.003-1.030); UROBILINOGEN,URINE <=1.0 mg/dL (<=1.0)
[2021-08-24 07:53] LABS: AMPHET/METH SCREEN,URINE NEGATIVE (NEGATIVE); BARBITURATE SCREEN, URINE NEGATIVE (NEGATIVE); BENZODIAZEPINES SCREEN,URINE NEGATIVE (NEGATIVE); CANNABINOID SCREEN,URINE NEGATIVE (NEGATIVE); COCAINE SCREEN,URINE NEGATIVE (NEGATIVE); METHADONE SCREEN, URINE NEGATIVE (NEGATIVE); OPIATE SCREEN,URINE NEGATIVE (NEGATIVE)
[2021-08-24 07:57] LABS: PHENCYCLIDINE SCREEN,URINE NEGATIVE (NEGATIVE)
[2021-08-24 08:09] VITALS: BP 125/69
[2021-08-24] MEDS: QUEtiapine FUMARATE 25 MG TABLET PO SCH (09:25)
[2021-08-24] MEDS: HALOPERIDOL 5 MG TABLET PO PRN (11:53)
[2021-08-24] MEDS: LORazepam 2 MG TABLET PO PRN (11:53)
[2021-08-24 16:12] VITALS: BP 108/64
[2021-08-24] MEDS: QUEtiapine FUMARATE 300 MG TABLET PO SCH (20:31)
[2021-08-25 01:06] VITALS: BP 104/61
[2021-08-25] MEDS: HALOPERIDOL 5 MG TABLET PO PRN (08:17)
[2021-08-25] MEDS: QUEtiapine FUMARATE 25 MG TABLET PO SCH (08:17)
[2021-08-25 08:31] VITALS: BP 100/58
[2021-08-25] MEDS: LORazepam 2 MG TABLET PO PRN ×2 (12:07→17:20)
[2021-08-25 16:04] VITALS: BP 108/60
[2021-08-25] MEDS: QUEtiapine FUMARATE 300 MG TABLET PO SCH (20:04)
[2021-08-26 00:38] VITALS: BP 101/63
[2021-08-26] MEDS: HALOPERIDOL 5 MG TABLET PO PRN ×2 (08:10→13:00)
[2021-08-26] MEDS: LORazepam 2 MG TABLET PO PRN ×3 (08:10→17:49)
[2021-08-26] MEDS: QUEtiapine FUMARATE 25 MG TABLET PO SCH (08:10)
[2021-08-26 08:13] VITALS: BP 107/57
[2021-08-26 16:23] VITALS: BP 115/68
[2021-08-26] MEDS: QUEtiapine FUMARATE 300 MG TABLET PO SCH (20:04)
[2021-08-27 00:54] VITALS: BP 121/62
[2021-08-27 07:21] LABS: GLUCOMETER DEV NAME(LOC) POC.BV
[2021-08-27] MEDS: QUEtiapine FUMARATE 25 MG TABLET PO SCH (08:21)
[2021-08-27 16:14] VITALS: BP 119/71
[2021-08-27] MEDS: LORazepam 2 MG TABLET PO PRN (16:33)
[2021-08-27] MEDS: HYDROCORTISONE 25 MG RECTAL SUPPOSITORY PR PRN (17:53)
[2021-08-27] MEDS: QUEtiapine FUMARATE 300 MG TABLET PO SCH (20:06)
[2021-08-28 06:37] VITALS: BP 114/62
[2021-08-28 08:10] VITALS: BP 140/72
[2021-08-28] MEDS: QUEtiapine FUMARATE 25 MG TABLET PO SCH (08:13)
[2021-08-28] MEDS: LORazepam 2 MG TABLET PO PRN ×2 (11:04→18:37)
[2021-08-28 16:08] VITALS: BP 114/70
[2021-08-28] MEDS: QUEtiapine FUMARATE 300 MG TABLET PO SCH (20:00)
[2021-08-29 04:08] VITALS: BP 112/72
[2021-08-29 08:16] VITALS: BP 108/68
[2021-08-29] MEDS: LORazepam 2 MG TABLET PO PRN (08:16)
[2021-08-29] MEDS: HALOPERIDOL 5 MG TABLET PO PRN ×2 (08:16→14:25)
[2021-08-29] MEDS: QUEtiapine FUMARATE 25 MG TABLET PO SCH (08:16)
[2021-08-29] MEDS: IBUPROFEN 400 MG TABLET PO PRN (14:25)
[2021-08-29 16:08] VITALS: BP 112/80
[2021-08-29] MEDS: MAGNESIUM HYDROXIDE SUSPENSION 30 ML UDCUP PO PRN (16:45)
[2021-08-29] MEDS: QUEtiapine FUMARATE 300 MG TABLET PO SCH (20:31)
[2021-08-30 00:13] VITALS: BP 103/65
[2021-08-30 07:35] VITALS: BP 116/69
[2021-08-30] MEDS: LORazepam 2 MG TABLET PO PRN ×2 (07:40→15:44)
[2021-08-30 08:33] VITALS: BP 103/71
[2021-08-30] MEDS: QUEtiapine FUMARATE 25 MG TABLET PO SCH (08:38)
[2021-08-30] MEDS: ACETAMINOPHEN 325 MG TABLET PO PRN (09:50)
[2021-08-30 16:09] VITALS: BP 110/74
[2021-08-30 18:35] VITALS: BP 124/68
[2021-08-30] MEDS: IBUPROFEN 400 MG TABLET PO PRN (18:35)
[2021-08-30] MEDS: QUEtiapine FUMARATE 300 MG TABLET PO SCH (20:02)
[2021-08-31 08:09] VITALS: BP 114/72
[2021-08-31] MEDS: QUEtiapine FUMARATE 25 MG TABLET PO SCH (08:21)
[2021-08-31] MEDS: LORazepam 2 MG TABLET PO PRN ×2 (08:21→12:26)
[2021-08-31 16:07] VITALS: BP 106/59
[2021-08-31] MEDS: MAGNESIUM HYDROXIDE SUSPENSION 30 ML UDCUP PO PRN (17:51)
[2021-08-31] MEDS ORDERED: HYDROCORTISONE 2.5% 30 GM CREAM TP PRN (19:15)
[2021-08-31] MEDS: QUEtiapine FUMARATE 300 MG TABLET PO SCH (20:05)
[2021-09-01 06:44] VITALS: BP 104/72
[2021-09-01] MEDS: QUEtiapine FUMARATE 25 MG TABLET PO SCH (08:23)
[2021-09-01] MEDS: LORazepam 2 MG TABLET PO PRN (08:23)
[2021-09-01 09:07] VITALS: BP 106/68
[2021-09-01] MEDS: IBUPROFEN 400 MG TABLET PO PRN (09:16)
[2021-09-01 16:06] VITALS: BP 103/62
[2021-09-01] MEDS: MAGNESIUM HYDROXIDE SUSPENSION 30 ML UDCUP PO PRN (16:29)
[2021-09-01] MEDS: QUEtiapine FUMARATE 300 MG TABLET PO SCH (20:07)
[2021-09-02 00:57] VITALS: BP 104/69
[2021-09-02] MEDS: ACETAMINOPHEN 325 MG TABLET PO PRN (08:02)
[2021-09-02] MEDS: QUEtiapine FUMARATE 25 MG TABLET PO SCH (08:02)
[2021-09-02 09:39] VITALS: BP 115/68
[2021-09-02] MEDS: MECLIZINE HCL 25 MG TABLET PO PRN (15:34)
[2021-09-02 16:14] VITALS: BP 116/67
[2021-09-02] MEDS: QUEtiapine FUMARATE 300 MG TABLET PO SCH (20:03)
[2021-09-03 00:23] VITALS: BP 110/72
[2021-09-03] MEDS: QUEtiapine FUMARATE 25 MG TABLET PO SCH (08:05)
[2021-09-03 08:24] VITALS: BP 107/66
[2021-09-03] MEDS: IBUPROFEN 400 MG TABLET PO PRN (10:03)
[2021-09-03 11:21] LABS: GLUCOMETER DEV NAME(LOC) POC.BV
[2021-09-03] MEDS: ACETAMINOPHEN 325 MG TABLET PO PRN (14:19)
[2021-09-03] MEDS: MECLIZINE HCL 25 MG TABLET PO PRN (15:32)
[2021-09-03 16:05] VITALS: BP 113/68
[2021-09-03 16:36] LABS: GLUCOMETER DEV NAME(LOC) BV2S.; GLUCOSE,POINT OF CARE 105 MG/DL (70-110)
[2021-09-03] MEDS: QUEtiapine FUMARATE 300 MG TABLET PO SCH ×2 (21:00→23:04)
[2021-09-03 23:12] VITALS: BP 118/80
[2021-09-04 00:14] VITALS: BP 122/71
[2021-09-04] MEDS: QUEtiapine FUMARATE 25 MG TABLET PO SCH (08:07)
[2021-09-04 08:08] VITALS: BP 99/65
[2021-09-04] MEDS ORDERED: SUMAtriptan SUCCINATE 25 MG TABLET PO PRN (11:30)
[2021-09-04 13:30] VITALS: BP 119/72
[2021-09-04] MEDS ORDERED: SUMAtriptan SUCCINATE 25 MG TABLET PO ONE (13:30)
[2021-09-04] MEDS: LORazepam 2 MG TABLET PO PRN (13:31)
[2021-09-04 16:11] VITALS: BP 108/63
[2021-09-04] MEDS: QUEtiapine FUMARATE 300 MG TABLET PO SCH (20:00)
[2021-09-04] MEDS: SUMAtriptan SUCCINATE 25 MG TABLET PO PRN (20:02)
[2021-09-04] MEDS: HYDROCORTISONE 25 MG RECTAL SUPPOSITORY PR PRN (20:03)
[2021-09-05 06:19] VITALS: BP 115/69
[2021-09-05] MEDS: QUEtiapine FUMARATE 25 MG TABLET PO SCH (08:20)
[2021-09-05 08:24] VITALS: BP 115/65
[2021-09-05] MEDS: SUMAtriptan SUCCINATE 25 MG TABLET PO PRN (08:34)
[2021-09-05] MEDS ORDERED: MULTIVITAMINS WITH IRON TABLET PO SCH (11:15)
[2021-09-05] MEDS ORDERED: QUET25TA PO (12:28)
[2021-09-05] MEDS ORDERED: QUET300T2 PO (12:28)
[2021-09-05] MEDS ORDERED: QUET300T19 PO (12:48)
[2021-09-05] MEDS ORDERED: QUET25TA36 PO (12:48)
== END 2021-09-05 14:15 | disposition home or self-care (01) | DRG 750 ==
LOC: EMS 05:21 → B2S 13:32
PROVIDERS: ADMIT Psychiatry & Neurology Child & Adolescent Psychiatry; ATTEND Psychiatry & Neurology Child & Adolescent Psychiatry
DX: F20.0 Paranoid schizophrenia (principal); R45.850 Homicidal ideations; D64.9 Anemia, unspecified; Z20.822 Contact with and (suspected) exposure to COVID-19; E78.5 Hyperlipidemia, unspecified; F32.A Depression, unspecified; F41.9 Anxiety disorder, unspecified; Z59.00 Homelessness unspecified
CPT/HCPCS: 80053; 80061; 80307; 81003; 82962; 85025; 99285; G0480

== ENCOUNTER 2021-09-03 19:37 | Emergency (ER) | payer MEDICAID ==
[~2021-09-03] VITALS: Ht 160 cm; Wt 85.0 kg
[~2021-09-03 19:37] MED LIST changes: -ARIP15TA27 PO; -MECL-160 PO
[2021-09-03] MEDS ORDERED: KETOROLAC TROMETHAMINE 30 MG/ML VIAL IVP ONE (20:00)
[2021-09-03] MEDS ORDERED: SODIUM CHLORIDE 0.9% 1,000 ML IV ONE (20:00)
[2021-09-03] MEDS ORDERED: METOCLOPRAMIDE HCL 5 MG/ML 2 ML VIAL IVP ONE (20:00)
[2021-09-03] MEDS ORDERED: DiphenhydrAMINE HCL 50 MG/ML VIAL IVP ONE (20:00)
[2021-09-03 20:45] VITALS: BP 108/69
== END 2021-09-03 21:35 | disposition home or self-care (01) ==
LOC: EMS 20:10
DX: G43.909 Migraine, unspecified, not intractable, without status migrainosus (principal); F20.9 Schizophrenia, unspecified; F15.90 Other stimulant use, unspecified, uncomplicated; Z79.899 Other long term (current) drug therapy
CPT/HCPCS: 96361; 96374; 96375; 99284; J1200; J1885; J2765; J7030

== ENCOUNTER 2021-11-22 13:36 | Inpatient (IN) | payer MEDICAID ==
[~2021-11-22] VITALS: Ht 160 cm; Wt 83.0 kg
[~2021-11-22 13:36] MED LIST changes: -QUET200T PO; +QUET25TA PO; +QUET25TA36 PO; +QUET300T19 PO; +QUET300T2 PO
[2021-11-22] MEDS ORDERED: ACETAMINOPHEN 500 MG TABLET PO ONE (15:45)
[2021-11-22 15:51] LABS: BASOPHILS % (AUTO) 0.5 % (0.0-2.0); EOSINOPHILS % (AUTO) 0.9 % (1.0-6.0); HEMATOCRIT 39.7 % (41-53); HEMOGLOBIN 13.7 g/dL (13.5-17.5); LYMPHOCYTES # (AUTO) 1.8 K/uL (1.0-4.8); LYMPHOCYTES % (AUTO) 22.5 % (22.0-44.0); MEAN CORPUSCULAR HEMOGLOBIN 30.2 pg (26.0-34.0); MEAN CORPUSCULAR HGB CONC 34.5 G/dL (31.0-37.0); MEAN CORPUSCULAR VOLUME 88 fL (80-100); MONOCYTES # (AUTO) 0.6 K/uL (0.1-1.0); MONOCYTES % (AUTO) 7.4 % (2.0-9.0); NEUTROPHILS # (AUTO) 5.5 K/uL (1.8-7.7); NEUTROPHILS % (AUTO) 68.7 % (40.0-70.0); PLATELET COUNT (AUTO) 266 K/uL (150-450); RED BLOOD CELL COUNT(AUTO) 4.54 MIL/uL (4.50-5.90); RED CELL DISTRIBUTION WIDTH 13.6 % (11.5-14.5)
[2021-11-22] MEDS ORDERED: QUEtiapine FUMARATE 100 MG TABLET PO ONE (16:00)
[2021-11-22 16:03] LABS: ANION GAP 8 mmol/L (8-16); CALCIUM, TOTAL 9.1 mg/dL (8.8-10.5); CARBON DIOXIDE 31 mmol/L (22-29); CHLORIDE 102 mmol/L (98-107); GLOMERULAR FILTR. RATE CALC > 60 mL/min (>60); GLUCOSE,RANDOM 103 mg/dL (70-110); POTASSIUM 3.8 mmol/L (3.5-5.1); SODIUM SERUM 141 mmol/L (136-145); UREA NITROGEN, BLOOD 8 mg/dL (7-18)
[2021-11-22 16:09] LABS: ALANINE AMINOTRANSFERASE 77 U/L (12-78); ALKALINE PHOSPHATASE 116 U/L (46-116); ASPARTATE AMINOTRANSFERASE 36 U/L (15-37); BILIRUBIN,TOTAL 0.4 mg/dL (0.1-1.0); TOTAL PROTEIN, SERUM 8.3 g/dL (6.4-8.2)
[2021-11-22 16:17] LABS: COVID AG,FIA SOURCE NASAL SWAB
[2021-11-22] MEDS ORDERED: HALO5TAB23 PO (16:58)
[2021-11-22] MEDS ORDERED: PANT-31 PO (16:58)
[2021-11-22] MEDS ORDERED: NICO2GUM36 PO (17:00)
[2021-11-22] MEDS ORDERED: HALOPERIDOL 5 MG TABLET PO PRN (17:15)
[2021-11-22 19:13] VITALS: BP 136/80
[2021-11-23] MEDS ORDERED: LOPERAMIDE HCL 2 MG CAPSULE PO PRN (06:30)
[2021-11-23] MEDS ORDERED: GuaiFENesin/D-METHORPHAN [SUGAR-FREE] 200-20MG/10 ML SYRUP UDCUP PO PRN (06:30)
[2021-11-23] MEDS ORDERED: ONDANSETRON HCL 4 MG TABLET PO PRN (06:30)
[2021-11-23] MEDS ORDERED: DOCUSATE SODIUM 100 MG CAPSULE PO PRN (06:30)
[2021-11-23] MEDS ORDERED: NICOTINE 14 MG/24 HOUR PATCH TD PRN (06:30)
[2021-11-23] MEDS ORDERED: CloNIDine HCL 0.1 MG TABLET PO PRN (06:30)
[2021-11-23] MEDS ORDERED: MAGNESIUM HYDROXIDE SUSPENSION 30 ML UDCUP PO PRN (06:30)
[2021-11-23] MEDS ORDERED: ACETAMINOPHEN 325 MG TABLET PO PRN (06:30)
[2021-11-23] MEDS ORDERED: PETROLATUM,WHITE 28 GM JELLY TP PRN (06:30)
[2021-11-23] MEDS ORDERED: ALBUTEROL SULFATE HFA 90 MCG/PUFF 8 GM INHALER IH PRN (06:30)
[2021-11-23] MEDS ORDERED: IBUPROFEN 400 MG TABLET PO PRN (06:30)
[2021-11-23 08:49] VITALS: BP 116/75
[2021-11-23] MEDS: LORazepam 2 MG TABLET PO PRN (13:35)
[2021-11-23 18:54] VITALS: BP 123/77
[2021-11-23] MEDS: QUEtiapine FUMARATE 25 MG TABLET PO SCH (19:44)
[2021-11-23] MEDS: QUEtiapine FUMARATE 300 MG TABLET PO SCH (21:12)
[2021-11-24] MEDS: HALOPERIDOL 5 MG TABLET PO SCH ×3 (09:01→16:10)
[2021-11-24] MEDS: QUEtiapine FUMARATE 25 MG TABLET PO SCH ×2 (09:02→16:10)
[2021-11-24 09:14] VITALS: BP 108/69
[2021-11-24 16:00] VITALS: BP 110/76
[2021-11-24] MEDS: QUEtiapine FUMARATE 300 MG TABLET PO SCH (20:09)
[2021-11-25 08:00] VITALS: BP 119/74
[2021-11-25] MEDS: HALOPERIDOL 5 MG TABLET PO SCH ×3 (09:14→16:17)
[2021-11-25] MEDS: QUEtiapine FUMARATE 25 MG TABLET PO SCH ×2 (09:15→16:18)
[2021-11-25 16:20] VITALS: BP 124/78
[2021-11-25] MEDS: QUEtiapine FUMARATE 300 MG TABLET PO SCH (20:18)
[2021-11-25] MEDS: ZOLPIDEM TARTRATE 10 MG TABLET PO PRN (20:45)
[2021-11-26 08:00] VITALS: BP 126/84
[2021-11-26] MEDS: HALOPERIDOL 5 MG TABLET PO SCH ×3 (08:05→16:38)
[2021-11-26] MEDS: QUEtiapine FUMARATE 25 MG TABLET PO SCH ×2 (08:06→16:38)
[2021-11-26 16:00] VITALS: BP 133/82
[2021-11-26 20:04] VITALS: BP 134/78
[2021-11-26] MEDS: QUEtiapine FUMARATE 300 MG TABLET PO SCH (20:10)
[2021-11-27 08:00] VITALS: BP 113/67
[2021-11-27] MEDS: QUEtiapine FUMARATE 25 MG TABLET PO SCH ×2 (09:01→16:38)
[2021-11-27] MEDS: HALOPERIDOL 5 MG TABLET PO SCH ×3 (09:01→16:38)
[2021-11-27 17:06] VITALS: BP 121/78
[2021-11-27] MEDS: QUEtiapine FUMARATE 300 MG TABLET PO SCH (20:30)
[2021-11-28] MEDS: HALOPERIDOL 5 MG TABLET PO SCH ×3 (08:36→17:51)
[2021-11-28] MEDS: QUEtiapine FUMARATE 25 MG TABLET PO SCH ×2 (08:36→17:51)
[2021-11-28 09:10] VITALS: BP 109/65
[2021-11-28 14:39] LABS: COVID AG,FIA SOURCE NASAL SWAB
[2021-11-28 16:14] VITALS: BP 124/88
[2021-11-28] MEDS: QUEtiapine FUMARATE 300 MG TABLET PO SCH (20:02)
[2021-11-28] MEDS: ZOLPIDEM TARTRATE 10 MG TABLET PO PRN (20:58)
[2021-11-29] MEDS: QUEtiapine FUMARATE 25 MG TABLET PO SCH ×2 (08:48→16:02)
[2021-11-29] MEDS: HALOPERIDOL 5 MG TABLET PO SCH ×3 (08:48→16:02)
[2021-11-29 09:39] VITALS: BP 105/72
[2021-11-29 16:00] VITALS: BP 98/65
[2021-11-29] MEDS: QUEtiapine FUMARATE 300 MG TABLET PO SCH (20:11)
[2021-11-29] MEDS: ZOLPIDEM TARTRATE 10 MG TABLET PO PRN (20:20)
[2021-11-30 08:01] VITALS: BP 102/63
[2021-11-30] MEDS: QUEtiapine FUMARATE 25 MG TABLET PO SCH ×2 (08:11→17:00)
[2021-11-30] MEDS: HALOPERIDOL 5 MG TABLET PO SCH ×3 (08:11→17:01)
[2021-11-30 16:00] VITALS: BP 120/69
[2021-11-30] MEDS: QUEtiapine FUMARATE 300 MG TABLET PO SCH (20:00)
[2021-11-30] MEDS: ZOLPIDEM TARTRATE 10 MG TABLET PO PRN (20:22)
[2021-12-01 08:01] VITALS: BP 101/66
[2021-12-01] MEDS: HALOPERIDOL 5 MG TABLET PO SCH ×3 (08:41→17:32)
[2021-12-01] MEDS: QUEtiapine FUMARATE 25 MG TABLET PO SCH ×2 (08:41→17:32)
[2021-12-01 16:23] VITALS: BP 110/65
[2021-12-01] MEDS: LORazepam 2 MG TABLET PO PRN (17:54)
[2021-12-01] MEDS: QUEtiapine FUMARATE 300 MG TABLET PO SCH (20:01)
[2021-12-01] MEDS: ZOLPIDEM TARTRATE 10 MG TABLET PO PRN (20:22)
[2021-12-02 08:00] VITALS: BP 121/72
[2021-12-02] MEDS: QUEtiapine FUMARATE 25 MG TABLET PO SCH ×2 (09:19→16:53)
[2021-12-02] MEDS: HALOPERIDOL 5 MG TABLET PO SCH ×3 (09:20→16:54)
[2021-12-02 16:29] VITALS: BP 108/71
[2021-12-02] MEDS: ZOLPIDEM TARTRATE 10 MG TABLET PO PRN (21:24)
[2021-12-02] MEDS: QUEtiapine FUMARATE 300 MG TABLET PO SCH (21:24)
[2021-12-03 08:30] VITALS: BP 92/55
[2021-12-03] MEDS: QUEtiapine FUMARATE 25 MG TABLET PO SCH ×2 (09:00→16:25)
[2021-12-03] MEDS: HALOPERIDOL 5 MG TABLET PO SCH ×3 (09:00→16:25)
[2021-12-03 16:30] VITALS: BP 118/78
[2021-12-03] MEDS: QUEtiapine FUMARATE 300 MG TABLET PO SCH (20:48)
[2021-12-03] MEDS: ZOLPIDEM TARTRATE 10 MG TABLET PO PRN (21:45)
[2021-12-04 09:00] VITALS: BP 117/74
[2021-12-04] MEDS: QUEtiapine FUMARATE 25 MG TABLET PO SCH ×2 (10:24→16:05)
[2021-12-04] MEDS: HALOPERIDOL 5 MG TABLET PO SCH ×3 (10:24→16:05)
[2021-12-04] MEDS: OLANZapine 5 MG TABLET PO SCH ×2 (12:08→20:23)
[2021-12-04 16:00] VITALS: BP 128/85
[2021-12-04] MEDS: QUEtiapine FUMARATE 300 MG TABLET PO SCH (20:22)
[2021-12-04] MEDS: TraZODone HCL 50 MG TABLET PO SCH (20:22)
[2021-12-05 06:58] LABS: COVID AG,FIA SOURCE NASAL SWAB
[2021-12-05 08:00] VITALS: BP 110/75
[2021-12-05] MEDS: OLANZapine 5 MG TABLET PO SCH ×2 (08:39→20:03)
[2021-12-05] MEDS: QUEtiapine FUMARATE 25 MG TABLET PO SCH ×2 (08:40→16:09)
[2021-12-05] MEDS: HALOPERIDOL 5 MG TABLET PO SCH ×3 (08:40→16:09)
[2021-12-05 16:00] VITALS: BP 114/70
[2021-12-05] MEDS: QUEtiapine FUMARATE 300 MG TABLET PO SCH (20:03)
[2021-12-05] MEDS: TraZODone HCL 50 MG TABLET PO SCH (20:03)
[2021-12-06 08:00] VITALS: BP 108/60
[2021-12-06] MEDS: HALOPERIDOL 5 MG TABLET PO SCH ×3 (08:52→16:08)
[2021-12-06] MEDS: OLANZapine 5 MG TABLET PO SCH ×2 (08:52→20:13)
[2021-12-06] MEDS: QUEtiapine FUMARATE 25 MG TABLET PO SCH ×2 (08:53→16:08)
[2021-12-06 17:18] VITALS: BP 110/72
[2021-12-06] MEDS: QUEtiapine FUMARATE 300 MG TABLET PO SCH (20:13)
[2021-12-06] MEDS: TraZODone HCL 50 MG TABLET PO SCH (20:13)
[2021-12-07] MEDS: OLANZapine 5 MG TABLET PO SCH ×2 (08:24→20:14)
[2021-12-07] MEDS: QUEtiapine FUMARATE 25 MG TABLET PO SCH ×2 (08:25→16:44)
[2021-12-07] MEDS: HALOPERIDOL 5 MG TABLET PO SCH ×3 (08:25→16:44)
[2021-12-07 09:54] VITALS: BP 137/81
[2021-12-07 17:00] VITALS: BP 126/86
[2021-12-07] MEDS: TraZODone HCL 50 MG TABLET PO SCH (20:14)
[2021-12-07] MEDS: QUEtiapine FUMARATE 300 MG TABLET PO SCH (20:14)
[2021-12-08 08:00] VITALS: BP 108/71
[2021-12-08] MEDS: OLANZapine 5 MG TABLET PO SCH ×2 (08:37→20:17)
[2021-12-08] MEDS: QUEtiapine FUMARATE 25 MG TABLET PO SCH ×2 (08:37→16:12)
[2021-12-08] MEDS: HALOPERIDOL 5 MG TABLET PO SCH ×3 (08:37→16:11)
[2021-12-08] MEDS: LORazepam 2 MG TABLET PO PRN (15:04)
[2021-12-08 17:00] VITALS: BP 123/84
[2021-12-08] MEDS: QUEtiapine FUMARATE 300 MG TABLET PO SCH (20:17)
[2021-12-08] MEDS: TraZODone HCL 50 MG TABLET PO SCH (20:17)
[2021-12-09 08:00] VITALS: BP 101/63
[2021-12-09] MEDS: HALOPERIDOL 5 MG TABLET PO SCH ×3 (08:13→16:11)
[2021-12-09] MEDS: QUEtiapine FUMARATE 25 MG TABLET PO SCH ×2 (08:13→16:12)
[2021-12-09] MEDS: OLANZapine 5 MG TABLET PO SCH ×2 (08:13→20:24)
[2021-12-09] MEDS: MECLIZINE HCL 25 MG TABLET PO PRN (08:18)
[2021-12-09 16:09] VITALS: BP 129/90
[2021-12-09] MEDS: LORazepam 2 MG TABLET PO PRN (16:12)
[2021-12-09] MEDS: TraZODone HCL 50 MG TABLET PO SCH (20:24)
[2021-12-09] MEDS: QUEtiapine FUMARATE 300 MG TABLET PO SCH (20:24)
[2021-12-10 08:00] VITALS: BP 105/65
[2021-12-10] MEDS: HALOPERIDOL 5 MG TABLET PO SCH ×3 (08:24→16:25)
[2021-12-10] MEDS: QUEtiapine FUMARATE 25 MG TABLET PO SCH ×2 (08:24→16:25)
[2021-12-10] MEDS: OLANZapine 5 MG TABLET PO SCH ×2 (08:24→20:23)
[2021-12-10 16:28] VITALS: BP 123/86
[2021-12-10] MEDS: TraZODone HCL 50 MG TABLET PO SCH (20:23)
[2021-12-10] MEDS: QUEtiapine FUMARATE 300 MG TABLET PO SCH (20:23)
[2021-12-11 08:00] VITALS: BP 98/55
[2021-12-11] MEDS: QUEtiapine FUMARATE 25 MG TABLET PO SCH ×2 (08:52→16:38)
[2021-12-11] MEDS: OLANZapine 5 MG TABLET PO SCH ×2 (08:52→20:44)
[2021-12-11] MEDS: HALOPERIDOL 5 MG TABLET PO SCH ×3 (08:52→16:38)
[2021-12-11 16:25] VITALS: BP 109/69
[2021-12-11] MEDS: TraZODone HCL 50 MG TABLET PO SCH (20:44)
[2021-12-11] MEDS: QUEtiapine FUMARATE 300 MG TABLET PO SCH (20:44)
[2021-12-12 07:10] LABS: COVID AG,FIA SOURCE NASAL SWAB
[2021-12-12] MEDS: QUEtiapine FUMARATE 25 MG TABLET PO SCH ×2 (08:25→16:45)
[2021-12-12] MEDS: HALOPERIDOL 5 MG TABLET PO SCH ×3 (08:25→16:45)
[2021-12-12] MEDS: OLANZapine 5 MG TABLET PO SCH ×2 (08:25→20:21)
[2021-12-12 10:13] VITALS: BP 137/93
[2021-12-12] MEDS: LORazepam 2 MG TABLET PO PRN (14:23)
[2021-12-12 16:32] VITALS: BP 114/76
[2021-12-12] MEDS: TraZODone HCL 50 MG TABLET PO SCH (20:21)
[2021-12-12] MEDS: QUEtiapine FUMARATE 300 MG TABLET PO SCH (20:21)
[2021-12-13 08:00] VITALS: BP 111/73
[2021-12-13] MEDS: QUEtiapine FUMARATE 25 MG TABLET PO SCH ×2 (08:44→16:20)
[2021-12-13] MEDS: OLANZapine 5 MG TABLET PO SCH ×2 (08:45→20:02)
[2021-12-13] MEDS: HALOPERIDOL 5 MG TABLET PO SCH ×3 (08:45→16:04)
[2021-12-13] MEDS: MECLIZINE HCL 25 MG TABLET PO PRN (08:48)
[2021-12-13 16:00] VITALS: BP 120/79
[2021-12-13] MEDS: QUEtiapine FUMARATE 300 MG TABLET PO SCH (20:02)
[2021-12-13] MEDS: TraZODone HCL 50 MG TABLET PO SCH (20:02)
[2021-12-14 08:05] VITALS: BP 100/68
[2021-12-14] MEDS: QUEtiapine FUMARATE 25 MG TABLET PO SCH ×2 (08:14→17:01)
[2021-12-14] MEDS: HALOPERIDOL 5 MG TABLET PO SCH ×3 (08:14→17:01)
[2021-12-14] MEDS: OLANZapine 5 MG TABLET PO SCH ×2 (08:14→20:25)
[2021-12-14] MEDS: LORazepam 2 MG TABLET PO PRN (15:02)
[2021-12-14 16:55] VITALS: BP 133/95
[2021-12-14] MEDS: QUEtiapine FUMARATE 300 MG TABLET PO SCH (20:24)
[2021-12-14] MEDS: TraZODone HCL 50 MG TABLET PO SCH (20:25)
[2021-12-15 08:35] VITALS: BP 124/76
[2021-12-15] MEDS: QUEtiapine FUMARATE 25 MG TABLET PO SCH ×2 (08:42→16:44)
[2021-12-15] MEDS: OLANZapine 5 MG TABLET PO SCH ×2 (08:42→20:17)
[2021-12-15] MEDS: HALOPERIDOL 5 MG TABLET PO SCH ×3 (08:42→16:44)
[2021-12-15 16:00] VITALS: BP 153/88
[2021-12-15] MEDS: QUEtiapine FUMARATE 300 MG TABLET PO SCH (20:17)
[2021-12-15] MEDS: TraZODone HCL 50 MG TABLET PO SCH (20:17)
[2021-12-16 08:01] VITALS: BP 121/79
[2021-12-16] MEDS: HALOPERIDOL 5 MG TABLET PO SCH ×3 (08:31→16:26)
[2021-12-16] MEDS: OLANZapine 5 MG TABLET PO SCH ×2 (08:31→20:14)
[2021-12-16] MEDS: QUEtiapine FUMARATE 25 MG TABLET PO SCH ×2 (08:31→16:26)
[2021-12-16] MEDS: MECLIZINE HCL 25 MG TABLET PO PRN (08:32)
[2021-12-16] MEDS: LORazepam 2 MG TABLET PO PRN (13:05)
[2021-12-16 16:44] VITALS: BP 114/74
[2021-12-16] MEDS: TraZODone HCL 50 MG TABLET PO SCH (20:14)
[2021-12-16] MEDS: QUEtiapine FUMARATE 300 MG TABLET PO SCH (20:14)
[2021-12-17] MEDS: QUEtiapine FUMARATE 25 MG TABLET PO SCH ×2 (08:56→16:26)
[2021-12-17] MEDS: HALOPERIDOL 5 MG TABLET PO SCH ×3 (08:56→16:26)
[2021-12-17] MEDS: OLANZapine 5 MG TABLET PO SCH ×2 (08:57→20:20)
[2021-12-17 09:00] VITALS: BP 104/70
[2021-12-17 16:37] VITALS: BP 143/94
[2021-12-17] MEDS: QUEtiapine FUMARATE 300 MG TABLET PO SCH (20:20)
[2021-12-17] MEDS: TraZODone HCL 50 MG TABLET PO SCH (20:20)
[2021-12-17] MEDS: ZOLPIDEM TARTRATE 10 MG TABLET PO PRN (21:03)
[2021-12-18] MEDS: OLANZapine 5 MG TABLET PO SCH ×2 (09:51→20:17)
[2021-12-18] MEDS: HALOPERIDOL 5 MG TABLET PO SCH ×3 (09:52→16:04)
[2021-12-18] MEDS: QUEtiapine FUMARATE 25 MG TABLET PO SCH ×2 (09:52→16:04)
[2021-12-18 13:13] VITALS: BP 123/78
[2021-12-18 16:22] VITALS: BP 105/62
[2021-12-18] MEDS: TraZODone HCL 50 MG TABLET PO SCH (20:17)
[2021-12-18] MEDS: QUEtiapine FUMARATE 300 MG TABLET PO SCH (20:17)
[2021-12-18] MEDS: ZOLPIDEM TARTRATE 10 MG TABLET PO PRN (21:06)
[2021-12-19] MEDS: HALOPERIDOL 5 MG TABLET PO SCH ×3 (08:14→16:04)
[2021-12-19] MEDS: QUEtiapine FUMARATE 25 MG TABLET PO SCH ×2 (08:14→16:04)
[2021-12-19] MEDS: OLANZapine 5 MG TABLET PO SCH ×2 (08:14→20:08)
[2021-12-19 09:18] VITALS: BP 120/80
[2021-12-19 10:34] LABS: COVID AG,FIA SOURCE NASAL SWAB
[2021-12-19 16:48] VITALS: BP 114/79
[2021-12-19] MEDS: QUEtiapine FUMARATE 300 MG TABLET PO SCH (20:08)
[2021-12-19] MEDS: TraZODone HCL 50 MG TABLET PO SCH (20:08)
[2021-12-19] MEDS: ZOLPIDEM TARTRATE 10 MG TABLET PO PRN (21:00)
[2021-12-20 08:17] VITALS: BP 100/67
[2021-12-20] MEDS: OLANZapine 5 MG TABLET PO SCH ×2 (08:41→20:07)
[2021-12-20] MEDS: MECLIZINE HCL 25 MG TABLET PO PRN (08:41)
[2021-12-20] MEDS: HALOPERIDOL 5 MG TABLET PO SCH ×3 (08:41→16:07)
[2021-12-20] MEDS: QUEtiapine FUMARATE 25 MG TABLET PO SCH (08:41)
[2021-12-20] MEDS: QUEtiapine FUMARATE 100 MG TABLET PO SCH (16:07)
[2021-12-20] MEDS: MAG HYDROX/AL HYDROX/SIMETH ES 30 ML SUSPENSION UDCUP PO PRN (16:08)
[2021-12-20 16:58] VITALS: BP 118/73
[2021-12-20] MEDS: TraZODone HCL 50 MG TABLET PO SCH (20:07)
[2021-12-20] MEDS: QUEtiapine FUMARATE 300 MG TABLET PO SCH (20:07)
[2021-12-20] MEDS: ZOLPIDEM TARTRATE 10 MG TABLET PO PRN (21:11)
[2021-12-21 09:00] VITALS: BP 119/67
[2021-12-21] MEDS: QUEtiapine FUMARATE 100 MG TABLET PO SCH ×2 (09:14→16:53)
[2021-12-21] MEDS: HALOPERIDOL 5 MG TABLET PO SCH ×3 (09:14→16:53)
[2021-12-21] MEDS: OLANZapine 5 MG TABLET PO SCH ×2 (09:14→20:31)
[2021-12-21 16:06] VITALS: BP 118/71
[2021-12-21] MEDS: QUEtiapine FUMARATE 300 MG TABLET PO SCH (20:30)
[2021-12-21] MEDS: TraZODone HCL 50 MG TABLET PO SCH (20:30)
[2021-12-21] MEDS: ZOLPIDEM TARTRATE 10 MG TABLET PO PRN (21:23)
[2021-12-22 09:00] VITALS: BP 105/64
[2021-12-22] MEDS: OLANZapine 5 MG TABLET PO SCH ×2 (09:15→20:17)
[2021-12-22] MEDS: QUEtiapine FUMARATE 100 MG TABLET PO SCH ×2 (09:16→16:05)
[2021-12-22] MEDS: HALOPERIDOL 5 MG TABLET PO SCH ×3 (09:16→16:05)
[2021-12-22 16:00] VITALS: BP 114/67
[2021-12-22] MEDS: QUEtiapine FUMARATE 300 MG TABLET PO SCH (20:17)
[2021-12-22] MEDS: TraZODone HCL 50 MG TABLET PO SCH (20:17)
[2021-12-22] MEDS: ZOLPIDEM TARTRATE 10 MG TABLET PO PRN (21:00)
[2021-12-23 08:46] VITALS: BP 111/65
[2021-12-23] MEDS: QUEtiapine FUMARATE 100 MG TABLET PO SCH ×2 (09:04→16:07)
[2021-12-23] MEDS: OLANZapine 5 MG TABLET PO SCH ×2 (09:04→20:11)
[2021-12-23] MEDS: HALOPERIDOL 5 MG TABLET PO SCH ×3 (09:04→16:07)
[2021-12-23] MEDS: MAG HYDROX/AL HYDROX/SIMETH ES 30 ML SUSPENSION UDCUP PO PRN (14:02)
[2021-12-23 17:00] VITALS: BP 124/82
[2021-12-23] MEDS: QUEtiapine FUMARATE 300 MG TABLET PO SCH (20:11)
[2021-12-23] MEDS: TraZODone HCL 50 MG TABLET PO SCH (20:11)
[2021-12-23] MEDS: ZOLPIDEM TARTRATE 10 MG TABLET PO PRN (20:43)
[2021-12-24 08:55] VITALS: BP 124/79
[2021-12-24] MEDS: QUEtiapine FUMARATE 100 MG TABLET PO SCH ×2 (09:53→16:34)
[2021-12-24] MEDS: OLANZapine 5 MG TABLET PO SCH ×2 (09:53→20:14)
[2021-12-24] MEDS: HALOPERIDOL 5 MG TABLET PO SCH ×3 (09:53→16:34)
[2021-12-24 16:16] VITALS: BP 108/73
[2021-12-24] MEDS ORDERED: FAMOTIDINE 20 MG TABLET PO PRN (18:45)
[2021-12-24] MEDS: TraZODone HCL 50 MG TABLET PO SCH (20:14)
[2021-12-24] MEDS: QUEtiapine FUMARATE 300 MG TABLET PO SCH (20:14)
[2021-12-24] MEDS: ZOLPIDEM TARTRATE 10 MG TABLET PO PRN (21:01)
[2021-12-25] MEDS: QUEtiapine FUMARATE 100 MG TABLET PO SCH ×2 (08:50→16:30)
[2021-12-25] MEDS: HALOPERIDOL 5 MG TABLET PO SCH ×3 (08:50→16:30)
[2021-12-25] MEDS: OLANZapine 5 MG TABLET PO SCH ×2 (08:51→20:14)
[2021-12-25 09:43] VITALS: BP 125/74
[2021-12-25 16:39] VITALS: BP 123/64
[2021-12-25] MEDS: TraZODone HCL 50 MG TABLET PO SCH (20:14)
[2021-12-25] MEDS: QUEtiapine FUMARATE 300 MG TABLET PO SCH (20:14)
[2021-12-25] MEDS ORDERED: PHENYLEPHRINE/SHK LV/MIN OIL/PET 57 GM OINTMENT TP PRN (20:30)
[2021-12-25 20:47] VITALS: BP 139/79
[2021-12-25] MEDS: ZOLPIDEM TARTRATE 10 MG TABLET PO PRN (20:48)
[2021-12-26 07:14] LABS: COVID AG,FIA SOURCE NASAL SWAB
[2021-12-26 08:06] VITALS: BP 115/73
[2021-12-26] MEDS: QUEtiapine FUMARATE 100 MG TABLET PO SCH ×2 (08:46→16:46)
[2021-12-26] MEDS: HALOPERIDOL 5 MG TABLET PO SCH ×2 (08:46→16:46)
[2021-12-26] MEDS: OLANZapine 5 MG TABLET PO SCH ×2 (09:32→20:39)
[2021-12-26 16:00] VITALS: BP 130/81
[2021-12-26] MEDS: TraZODone HCL 50 MG TABLET PO SCH (20:39)
[2021-12-26] MEDS: QUEtiapine FUMARATE 300 MG TABLET PO SCH (20:39)
[2021-12-26] MEDS: ZOLPIDEM TARTRATE 10 MG TABLET PO PRN (22:44)
[2021-12-27 08:00] VITALS: BP 128/88
[2021-12-27] MEDS: HALOPERIDOL 5 MG TABLET PO SCH ×3 (08:13→17:14)
[2021-12-27] MEDS: QUEtiapine FUMARATE 100 MG TABLET PO SCH ×2 (08:13→17:14)
[2021-12-27] MEDS: OLANZapine 5 MG TABLET PO SCH ×2 (08:13→21:58)
[2021-12-27 12:45] LABS: APPEARANCE,URINE CLEAR (CLEAR); BILIRUBIN,URINE NEGATIVE (NEGATIVE); GLUCOSE, URINE (UA) NEGATIVE (NEGATIVE); KETONES,URINE NEGATIVE (NEGATIVE); LEUKOCYTE ESTERASE ,URINE NEGATIVE (NEGATIVE); NITRATE,URINE NEGATIVE (NEGATIVE); OCCULT BLOOD,URINE NEGATIVE (NEGATIVE); PROTEIN,URINE NEGATIVE (NEGATIVE); SPECIFIC GRAVITIY, URINE 1.016 (1.003-1.030); UROBILINOGEN,URINE <=1.0 mg/dL (<=1.0)
[2021-12-27 13:08] LABS: BASOPHILS % (AUTO) 0.6 % (0.0-2.0); EOSINOPHILS % (AUTO) 3.1 % (1.0-6.0); HEMATOCRIT 38.7 % (41-53); HEMOGLOBIN 13.5 g/dL (13.5-17.5); LYMPHOCYTES # (AUTO) 1.8 K/uL (1.0-4.8); LYMPHOCYTES % (AUTO) 24.6 % (22.0-44.0); MEAN CORPUSCULAR HEMOGLOBIN 30.2 pg (26.0-34.0); MEAN CORPUSCULAR HGB CONC 34.9 G/dL (31.0-37.0); MEAN CORPUSCULAR VOLUME 87 fL (80-100); MONOCYTES # (AUTO) 0.5 K/uL (0.1-1.0); MONOCYTES % (AUTO) 6.9 % (2.0-9.0); NEUTROPHILS # (AUTO) 4.8 K/uL (1.8-7.7); NEUTROPHILS % (AUTO) 64.8 % (40.0-70.0); PLATELET COUNT (AUTO) 222 K/uL (150-450); RED BLOOD CELL COUNT(AUTO) 4.48 MIL/uL (4.50-5.90); RED CELL DISTRIBUTION WIDTH 13.4 % (11.5-14.5)
[2021-12-27 13:16] LABS: HEMOGLOBIN A1C 6.1 % (3.8-5.6)
[2021-12-27 13:22] LABS: ALANINE AMINOTRANSFERASE 86 U/L (12-78); ALBUMIN 3.4 g/dL (3.4-5.0); ALKALINE PHOSPHATASE 125 U/L (46-116); ANION GAP 8 mmol/L (8-16); ASPARTATE AMINOTRANSFERASE 33 U/L (15-37); BILIRUBIN,TOTAL 0.2 mg/dL (0.1-1.0); CALCIUM, TOTAL 8.7 mg/dL (8.8-10.5); CARBON DIOXIDE 28 mmol/L (22-29); CHLORIDE 102 mmol/L (98-107); CREATININE 0.84 mg/dL (0.60-1.30); GLUCOSE,RANDOM 160 mg/dL (70-110); POTASSIUM 3.9 mmol/L (3.5-5.1); SODIUM SERUM 138 mmol/L (136-145); TOTAL PROTEIN, SERUM 7.3 g/dL (6.4-8.2); UREA NITROGEN, BLOOD 14 mg/dL (7-18)
[2021-12-27 13:23] LABS: GLOMERULAR FILTR. RATE CALC > 60 mL/min (>60)
[2021-12-27 16:00] VITALS: BP 121/84
[2021-12-27] MEDS: QUEtiapine FUMARATE 300 MG TABLET PO SCH (21:58)
[2021-12-27] MEDS: TraZODone HCL 50 MG TABLET PO SCH (21:58)
[2021-12-27] MEDS: ZOLPIDEM TARTRATE 10 MG TABLET PO PRN (22:53)
[2021-12-28] MEDS: QUEtiapine FUMARATE 100 MG TABLET PO SCH ×2 (08:34→16:11)
[2021-12-28] MEDS: OLANZapine 5 MG TABLET PO SCH ×2 (08:34→20:39)
[2021-12-28] MEDS: HALOPERIDOL 5 MG TABLET PO SCH ×3 (08:34→16:11)
[2021-12-28 08:37] VITALS: BP 116/69
[2021-12-28 16:43] VITALS: BP 101/64
[2021-12-28] MEDS: TraZODone HCL 50 MG TABLET PO SCH (20:39)
[2021-12-28] MEDS: QUEtiapine FUMARATE 300 MG TABLET PO SCH (20:39)
[2021-12-28] MEDS: ZOLPIDEM TARTRATE 10 MG TABLET PO PRN (21:33)
[2021-12-29 08:00] VITALS: BP 108/61
[2021-12-29] MEDS: QUEtiapine FUMARATE 100 MG TABLET PO SCH (08:43)
[2021-12-29] MEDS: OLANZapine 5 MG TABLET PO SCH (08:43)
[2021-12-29] MEDS: HALOPERIDOL 5 MG TABLET PO SCH ×2 (08:43→12:23)
[2021-12-29] MEDS ORDERED: QUET300T19 PO (12:52)
[2021-12-29] MEDS ORDERED: OLAN5TAB52 PO (12:52)
[2021-12-29] MEDS ORDERED: TRAZ-252 PO (12:52)
[2021-12-29] MEDS ORDERED: QUET100T34 PO (12:52)
== END 2021-12-29 13:30 | disposition home or self-care (01) | DRG 750 ==
LOC: EMS 13:38 → 3EI 18:36
PROVIDERS: ADMIT Psychiatry & Neurology Child & Adolescent Psychiatry; ATTEND Psychiatry & Neurology Child & Adolescent Psychiatry
DX: F25.1 Schizoaffective disorder, depressive type (principal); R45.851 Suicidal ideations; Z59.00 Homelessness unspecified; F15.10 Other stimulant abuse, uncomplicated; Z20.822 Contact with and (suspected) exposure to COVID-19; G43.909 Migraine, unspecified, not intractable, without status migrainosus; F19.10 Other psychoactive substance abuse, uncomplicated; D64.9 Anemia, unspecified
CPT/HCPCS: 80053; 81003; 83036; 85025; 87081; 99285; G0480

== ENCOUNTER 2025-03-29 16:36 | Emergency (ER) | payer MEDICAID, OTHER ==
[~2025-03-29] VITALS: Ht 154.9 cm; Wt 91.0 kg
[~2025-03-29 16:36] MED LIST changes: +DIVA-153 PO; +MELA5TAB40 PO; +NALT50TA33 PO; +PRAZ1 PO; -QUET25TA PO; -QUET25TA36 PO; -QUET300T19 PO; -QUET300T2 PO; +RISP3TAB77 PO
[2025-03-29 16:42] VITALS: TEMP 98.4
[2025-03-29 16:45] VITALS: BP 102/78; PULSE 78; RESP 16; O2SAT 98
[2025-03-29] MEDS ORDERED: CHLO50TA71 PO (17:00)
[2025-03-29] MEDS ORDERED: PRAZ2 PO (17:00)
[2025-03-29] MEDS ORDERED: METF-1185 PO (17:00)
[2025-03-29] MEDS ORDERED: LUMA42CA4 PO (17:00)
[2025-03-29] MEDS ORDERED: GABA-1201 PO (17:00)
[2025-03-29 17:13] LABS: PLATELET COUNT (AUTO) 242 K/uL (150-450); RED BLOOD CELL COUNT(AUTO) 4.60 MIL/uL (4.50-5.90); RED CELL DISTRIBUTION WIDTH 13.8 % (11.5-14.5); WHITE BLOOD COUNT (AUTO) 8.7 K/uL (4.5-11.0)
[2025-03-29 17:17] LABS: CALCIUM, TOTAL 8.8 mg/dL (8.8-10.5); CREATININE 0.85 mg/dL (0.60-1.30); GLOMERULAR FILTR. RATE CALC > 60 mL/min (>60); GLUCOSE,RANDOM 210 mg/dL (70-110); SODIUM SERUM 136 mmol/L (136-145); UREA NITROGEN, BLOOD 6 mg/dL (7-18)
[2025-03-29] MEDS: ACETAMINOPHEN 500 MG TABLET PO ONE (17:36)
[2025-03-29 18:16] LABS: COVID AG,FIA SOURCE NASAL SWAB
[2025-03-29 18:26] LABS: PH,URINE DRUG SCREEN 5.5 (5.0-8.0)
[2025-03-29 18:33] LABS: ALCOHOL, URINE DRUG SCREEN NEGATIVE (NEGATIVE); AMPHET/METH SCREEN,URINE NEGATIVE (NEGATIVE); BARBITURATE SCREEN, URINE NEGATIVE (NEGATIVE); CANNABINOID SCREEN,URINE NEGATIVE (NEGATIVE); COCAINE SCREEN,URINE NEGATIVE (NEGATIVE); METHADONE SCREEN, URINE NEGATIVE (NEGATIVE)
[2025-03-29 18:36] LABS: SARS-COV2 (COVID) ANTIGEN,FIA Negative (Negative)
== END 2025-03-29 18:44 ==
LOC: EDBD → EMS 16:36
DX: R44.0 Auditory hallucinations (principal); R44.1 Visual hallucinations; F15.90 Other stimulant use, unspecified, uncomplicated; F41.9 Anxiety disorder, unspecified; G43.909 Migraine, unspecified, not intractable, without status migrainosus; Z79.899 Other long term (current) drug therapy; Z20.822 Contact with and (suspected) exposure to COVID-19
CPT/HCPCS: 99285; 87426; 80048; 82962; 85025; 36415; 80307; G0480